=== PATIENT | male | born 1985 | race Hispanic/Latino ===

== ENCOUNTER 2019-08-17 10:39 | Emergency (ER) | payer OTHER ==
[~2019-08-17] VITALS: Ht 167.6 cm; Wt 77.4 kg
[~2019-08-17 10:39] MED LIST: AMOXICILLIN500 MG PO; CEPHALEXIN500 M1 PO; FIORICET PO; UNKNOWN B/P MED; UNKNOWN BP MED
[2019-08-17 11:05] VITALS: BP 138/86
== END 2019-08-17 11:05 | disposition home or self-care (01) | DRG 563 ==
LOC: ED 10:39
DX: S86.911A Strain of unspecified muscle(s) and tendon(s) at lower leg level, right leg, initial encounter (principal); X58.XXXA Exposure to other specified factors, initial encounter; Y92.89 Other specified places as the place of occurrence of the external cause; Y99.0 Civilian activity done for income or pay

== ENCOUNTER 2022-06-23 19:18 | Emergency (ER) | payer SELFPAY ==
[~2022-06-23] VITALS: Ht 177.8 cm; Wt 77.0 kg
[2022-06-23 19:25] VITALS: BP 154/95
[2022-06-23 19:36] VITALS: BP 141/89
[2022-06-23 19:55] LABS: HEMATOCRIT 47.1 % (39.0-50.0); HEMOGLOBIN 16.3 g/dl (14.0-18.0); IMMATURE GRANULOCYTES 0.2 % (0.0-5.0); MEAN CELL VOLUME 85.8 fL CALC (80.0-100.0); MEAN CORPUSCULAR HGB 29.7 pG CALC (26.0-32.0); MEAN CORPUSCULAR HGB CONC 34.6 g/dL CAL (32.0-36.0); NEUT# 9.42 thou/uL (1.82-7.42); RED BLOOD COUNT 5.49 mill/uL (4.70-6.10)
[2022-06-23 20:00] VITALS: BP 132/84
[2022-06-23 20:15] LABS: ALBUMIN 4.6 g/dL (3.2-5.0); ALKALINE PHOSPHATASE 106 u/l (38-126); ANION GAP 13 (6-22 (CALC)); BILIRUBIN, TOTAL 0.6 mg/dL (0.0-1.4); BUN 13 mg/dL (9-20); BUN/CREATININE RATIO 15 (12-20 (CALC)); CARBON DIOXIDE 26 mmol/l (22-30); CHLORIDE 104 mmol/l (95-108); CREATININE 0.9 mg/dL (0.7-1.3); GFR FOR AFR.AMER. > 60 ML/MIN (>=60 (CALC)); GFR OTHER RACES > 60 ML/MIN (>=60 (CALC)); LIPASE 94 u/l (23-300); POTASSIUM 3.9 mmol/l (3.5-5.1); SGOT/AST 40 u/l (17-59); SODIUM 139 mmol/l (137-146); TOTAL PROTEIN 8.2 g/dL (6.3-8.2)
[2022-06-23 20:18] LABS: ACT PARTIAL THROMBO TIME 24.5 SECONDS (20.0-32.5); PROTHROMBIN TIME 10.4 SECONDS (9.0-12.5)
[2022-06-23 20:26] LABS: MYOGLOBIN 15 ng/mL (0 - 121)
[2022-06-23 20:39] LABS: D-DIMER 0.17 mg/L (0.19-0.60)
[2022-06-23] MEDS ORDERED: VOLTAREN75 MG PO (20:43)
[2022-06-23 21:32] VITALS: BP 132/84
== END 2022-06-23 21:38 | disposition home or self-care (01) | DRG 313 ==
LOC: ED 19:18
PROVIDERS: Family Medicine
DX: R07.89 Other chest pain (principal); I10 Essential (primary) hypertension; Z20.822 Contact with and (suspected) exposure to COVID-19